=== PATIENT | male | born 1935 | race Caucasian/White ===

== ENCOUNTER 2021-09-23 07:15 | Outpatient (CLI) | payer OTHER, SELFPAY ==
--- NOTE | ~2021-09-23 | US_ITS ---
EXAMINATION: US renal BI DATE: 09/23/2021 08:11 INDICATION: Benign hypertension, stage III kidney disease TECHNIQUE: Multiple grayscale and Doppler ultrasound images of the kidneys were obtained. COMPARISON: None. FINDINGS: The right kidney measures 9.3 x 6 x 4.8 cm. The left kidney measures 8.5 x 4.7 x 3.5 cm. Th e kidneys demonstrate normal parenchymal echogenicity. There is no hydronephrosis. The bladder is nor mal. IMPRESSION: 1. Mild atrophy of the kidneys. Reviewed, dictated and finalized at location B.
== END 2021-09-23 07:16 | disposition home or self-care (01) ==
PROVIDERS: PCP Emergency Medicine; Visit Provider Internal Medicine Nephrology
DX: N18.30 Chronic kidney disease, stage 3 unspecified (principal); I12.9 Hypertensive chronic kidney disease with stage 1 through stage 4 chronic kidney disease, or unspecified chronic kidney disease
CPT/HCPCS: 76775

== ENCOUNTER 2022-02-21 12:04 | Emergency (ER) | payer OTHER, SELFPAY ==
--- NOTE | ~2022-02-21 | XR_ITS ---
EXAMINATION: XR lumbar spine 2-3V DATE: 02/21/2022 13:13 INDICATION: Left low back pain post fall TECHNIQUE: Anteroposterior and lateral views of the lumbar spine, and cone-down lateral view of the l umbosacral junction were obtained. COMPARISON: 10/28/2017 FINDINGS: Again seen is straightening of the normal lumbar lordosis. There is also 13 degrees lumbar levoscolio sis. Vertebral body heights are normal. No acute fractures identified. Severe disc height loss at L2- L3 through L5-S1, moderate disc height loss at T8-T9, T10-T11 and T11-T12 and mild disc height loss a t T9-T10, T12-L1 and L1-L2. 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 Moderate bilateral sacroi liac osteoarthritis. Mild to moderate bilateral hip osteoarthritis. IMPRESSION: 1. Relatively stable appearance of severe lumbar spondylosis. 2. Mild to moderate bilateral hip in moderate bilateral sacroiliac osteoarthritis. Reviewed, dictated and finalized at location A. 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 Relatively stable appearance of severe lumbar spondylosis. 2. Mild to moderate bilateral hip in moderate bilateral sacroiliac osteoarthrit is.
--- NOTE | ~2022-02-21 | XR_ITS ---
EXAMINATION: [id number] DATE: 02/21/2022 13:13 INDICATION: Right-sided rib pain post fall TECHNIQUE: A frontal inspiratory view of the chest and 3 views of the right ribs were obtained. COMPARISON: None FINDINGS: No rib fractures identified. 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 No airspace opacities, pulmonary edema, pleural effusion or pneumothorax. Heart size is normal. Tortuous thoracic aorta. 25 degree thoracic dextroscoliosis with moderate to severe s pondylosis. Lower cervical and submitted anterior spinal fusion with interbody bone graft cages at 2 levels spanned by an anterior plate and screw fixation. IMPRESSION: 1. No rib fracture or acute cardiopulmonary disease. Reviewed, dictated and finalized at location A. 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
[2022-02-21 12:49] VITALS: BP 148/83; PULSE 88; RESP 20; TEMP 36.6; O2SAT 95
--- NOTE | 2022-02-21 13:44 | ED.FALL ---
HPI - Fall General Chief Complaint: Unspecified Stated Complaint: Fall Time Seen by Provider: 02/21/22 13:45 Source: patient, RN notes reviewed and old records reviewed Mode of arrival: ambulatory Limitations: no limitations History of Present Illness HPI Narrative: 86-year-old male presents to the [facility] after falling last night. Has taken Tylenol due to not being able to take other medications. Has a history of chronic AFib Denies hitting head. No loss of consciousness. Related Data Home Medications Medication Instructions Recorded Confirmed dorzolamide 22.3 mg-timolol 6.8 See Rx Instructions .Route .COMPLEX 03/05/19 02/17/21 mg/mL eye drops ascorbic acid (vitamin C) 1,000 mg 1 g PO DAILY 06/23/21 tablet bimatoprost 0.01 % eye drops See Rx Instructions .Route .COMPLEX 06/23/21 ([place]igan) cholecalciferol (vitamin D3) 25 25 mcg PO DAILY 06/23/21 mcg (1,000 unit) capsule furosemide 20 mg tablet See Rx Instructions .Route .COMPLEX 06/23/21 metoprolol succinate 100 mg 100 mg PO DAILY 06/23/21 tablet,extended release 24 hr warfarin 2 mg tablet See Rx Instructions .Route .COMPLEX 06/23/21 warfarin 4 mg tablet See Rx Instructions .Route .COMPLEX 06/23/21 Allergies Allergy/AdvReac Type Severity Reaction Status Date / Time No Known Allergies Allergy Verified 02/21/22 13:48 Review of Systems Review of Systems: All systems reviewed & are unremarkable except as noted in HPI and below Constitutional: Constitutional: Reports no additional constitutional complaints Eyes: Eyes: Reports no additional eye complaints ENT: Reports system reviewed and no additional complaints, except as documented Cardiovascular: Cardiovascular: Reports no additional cardiovascular complaints, Denies chest pain and Denies dyspnea Respiratory: Respiratory: Reports no additional respiratory complaints, Denies chest congestion, Denies cough and Denies dyspnea Gastrointestinal: Gastrointestinal: Reports no additional gastrointestinal complaints, Denies abdominal pain, Denies nausea and Denies vomiting Musculoskeletal: Musculoskeletal: Reports as per HPI, Reports abnormal gait (Uses a walker), Reports back pain, Denies arthralgias, Denies joint swelling, Denies neck pain and Denies numbness Integumentary/Breasts: Skin/Breast: Reports as per HPI Neurologic: Reports system reviewed and no additional complaints, except as documented Psychiatric: Psychiatric: Reports no additional psychiatric complaints Allergic/Immunologic: Allergic/Immunologic: Reports no additional allergic/immunologic complaints PMFSH Past Medical History Medical History (Updated 02/21/22 @ 20:44 by Aniyah Perry APRN) Afib Family History Family History Sibling Carcinoma of colon, Onset Age: 65 Family history of lupus erythematosus, Onset Age: 65 Father Family history of congestive heart failure, Onset Age: 91 Mother Hypertension, Onset Age: 77 Social History Social History Smoking status: Never smoker Alcohol intake: never Comments At the time of my signature, I reviewed and agree with the nursing past medical, surgical, social, and family history. There is no relevant family history pertinent to the patient complaint. Exam Const: General: cooperative, no acute distress, well developed, alert, ill appearing chronically, uncomfortable and well nourished Nutritional Appearance: well nourished Orientation/consciousness: patient oriented x3 Limitations: no limitations HENMT: Head: normal to inspection Ears: hearing grossly normal bilaterally and external ears normal Face/Nose/Sinus: Normal external nose present, Normal nares present, Normal nasal mucous membranes and turbinates present and normal facial exam Face and sinus: normal facial exam Mouth: Yes Normal oral and palatal mucosa pre
== END 2022-02-21 14:18 | disposition home or self-care (01) ==
PROVIDERS: Emergency Provider Nurse Practitioner; PCP Emergency Medicine
DX: S51.019A Laceration without foreign body of unspecified elbow, initial encounter (principal); S20.211A Contusion of right front wall of thorax, initial encounter; I48.20 Chronic atrial fibrillation, unspecified; W19.XXXA Unspecified fall, initial encounter
CPT/HCPCS: 71101; 72100; 99214; G0463

== ENCOUNTER 2022-06-02 11:15 | Outpatient (RCR) | payer OTHER, SELFPAY ==
--- NOTE | 2022-04-12 08:34 | PTOPEVAL1 ---
Assessment and note entered by Medhat Osuna, PT Evaluation Information Assessment Status Evaluation Diagnosis other malaise, repeated falls Subjective Information Patient reports he has about 2 falls a year and he just does not feel comfortable on his feet. He has a wheeled walker he uses, was using a cane, but feels safer with the walker. He has been doing the same exercises since a neck surgery 2 years ago working up to 60 reps at a time. Clinical Summary Dillon is an 86 year old male coming into the clinic with feeling weak and history of falls. He has weakness in his ankles and hips to go along with loss of sensation in the feet and tightness in his hamstrings and calfs. Physical therapy will work on strengthening and stretching to put his posture in better alignment along with high end balance activities to improve lateral movement and Tinetti balance score. These treatments will address the objective and functional deficits as defined above. The patient will be advanced safely and appropriately in order for the patient to progress towards his/her prior level of function. Additional exercises will be introduced and as well as a comprehensive home exercise program upon discharge, if needed, ?to ensure carryover of functional gains achieved in the clinic. This treatment plan has been reviewed and agreement upon by the patient.
--- NOTE | 2022-05-09 13:23 | PTOPREEVAL ---
Assessment and note entered by Medhat Osuna, PT Evaluation Information Assessment Status Re-evaluation Diagnosis other malaise, repeated falls Onset Chronic Subjective Information Patient reports feeling stronger, but he is still reporting no change in his balance or dizziness. Reported Pain Level Pain Score 0: Self Report Assessment PT Clinical Summary Dillon is an 86 year old male coming in to the clinic for strengthening and working on balance and dizziness issues. Today was the first time we were able to get Nystagmus with any tests. Hopeful that patient will start feeling less dizzy following the Wilson Maneuver. He has met his goals with hip strength and all ankle strength besides ankle dorsiflexion. Tinetti improved 5 points to 23/28. Still would like a higher Tinetti score and decreased time with 5 sit to stand test. Would recommend continued physical therapy to see if the dizziness can be calmed down now that we have shown Nystagmus once. Plan of Care Interventions Electrical Stimulation,Gait Training,Hot Pack/Cold Pack,Manual Therapy,Neuro Re-education,Patient/ Caregiver Education,Therapeutic Activities, Therapeutic Exercise,Ultrasound Other Interventions taping PT Services Indicated Yes Treatment Frequency and 1-2x/wk for 8 visits Duration These treatments will address the objective and functional deficits as defined above. The patient will be advanced safely and appropriately in order for the patient to progress towards his/her prior level of function. Additional exercises will be introduced and as well as a comprehensive home exercise program upon discharge, if needed, ?to ensure carryover of functional gains achieved in the clinic. This treatment plan has been reviewed and agreement upon by the patient.
--- NOTE | 2022-06-20 09:29 | PCPTNOTE ---
Admitting Provider: Attending Provider: Yassine Bernabe MD Patient:Dillon Day Date of :1935 Patient has not returned for any further treatments since 06/02/2022, therefore he will be discharged at this time. Patient?s initial visit was on 04/11/2022 12:30 and (he/she) had a total of 13___ visits. The goals have been partially met. Thank you for referring this patient to [facility]. Please review, sign, date and return this discharge summary BASIL. I have been updated about the patient's current status and I agree with discharge from the above service at this time. Referring Physician Date
== END 2022-06-20 11:37 | disposition home or self-care (01) ==
LOC: ANHPT 11:15
PROVIDERS: PCP Emergency Medicine; Visit Provider Emergency Medicine
DX: R53.81 Other malaise (principal); R29.6 Repeated falls
CPT/HCPCS: 97110; 97112; 97161; 97530

== ENCOUNTER 2023-05-26 15:24 | Outpatient (CLI) | payer OTHER, SELFPAY ==
--- NOTE | ~2023-05-26 | MR_ITS ---
EXAMINATION: MR brain/brain stem wo con DATE: 05/26/2023 16:17 INDICATION: Personal history of other healed physical injury. Dizziness. TECHNIQUE: Magnetic resonance imaging (MRI) of the brain and brainstem was performed without intraven ous contrast. COMPARISON: Brain MRI 08/17/2011, head CT 06/19/2015 FINDINGS: There is no intracranial hemorrhage, acute infarction, or abnormal intracranial mass lesion . There are scattered areas of nonspecific increased T2-weighted signal intensity in the cerebral whi te matter, which is within normal limits for the patient's age. 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 The ventricles are normal in size. There is mild mucosal thickening in the ethmoid sinuses. There are likely changes of ocular lens replacement surgeries. The internal auditory canals and inner ears and tympanic cavities are normal. The mastoid air cells are normal. IMPRESSION: 1. 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 Reviewed, dictated and finalized at location A.
== END 2023-05-26 15:25 ==
LOC: MICIMG 15:24
PROVIDERS: PCP Psychiatry & Neurology Neurology; Visit Provider Psychiatry & Neurology Neurology
DX: R42 Dizziness and giddiness (principal); I25.2 Old myocardial infarction; Z87.828 Personal history of other (healed) physical injury and trauma
CPT/HCPCS: 70551

== ENCOUNTER 2023-06-26 08:31 | Outpatient (CLI) | payer OTHER, SELFPAY ==
--- NOTE | ~2023-06-26 | NM_ITS ---
EXAMINATION: NM bone scan whole body DATE: 06/26/2023 14:27 INDICATION: Hypercalcemia. TECHNIQUE: 24.6 mCi Tc-99m HDP was administered intravenously. Delayed whole-body scintigrams were o btained. COMPARISON: Lumbar spine radiographs 02/21/2022 FINDINGS: There is joint-centered increased activity in the spine, sternum, elbows, hands, knees, and feet, likely osteoarthritis and spondylosis. IMPRESSION: 1. No specific evidence of malignancy. Reviewed, dictated and finalized at location A.
== END 2023-06-26 08:32 | disposition home or self-care (01) ==
PROVIDERS: PCP Emergency Medicine; Visit Provider Internal Medicine Nephrology
DX: E83.52 Hypercalcemia (principal); N18.32 Chronic kidney disease, stage 3b
CPT/HCPCS: 78306; A9503

== ENCOUNTER 2024-02-20 07:17 | Outpatient (CLI) | payer OTHER, SELFPAY ==
--- NOTE | ~2024-02-20 | NM_ITS ---
EXAMINATION: NM parathyroid imaging w spect DATE: 02/20/2024 11:43 INDICATION: Primary hyperparathyroidism. TECHNIQUE: 20.1 mCi Tc99m sestamibi was administered intravenously. Anterior images of the neck were obtained immediately and at 3 hours. SPECT images of the neck were obtained. COMPARISON: None. FINDINGS: There is focal persistent activity at the posterior aspect of right thyroid lobe. IMPRESSION: 1. Focal persistent activity at the posterior aspect of right thyroid lobe, consistent with a parathy roid adenoma. Reviewed, dictated and finalized at location A. 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 Focal persistent activity at the posterior aspect of right thyroid lobe, con sistent with a parathyroid adenoma.
== END 2024-02-20 07:18 | disposition home or self-care (01) ==
PROVIDERS: PCP Emergency Medicine; Visit Provider Internal Medicine
DX: E83.52 Hypercalcemia (principal)
CPT/HCPCS: 78071; A9500